=== PATIENT | female | born 1970 | race Caucasian/White ===

== ENCOUNTER → 2018-11-04 12:45 | Outpatient (CLI) | payer OTHER, SELFPAY ==
[2018-11-04 14:16] LABS: Absolute Lymphocyte Count 1.72 X10^3/ul (0.83-4.51); Absolute Neutrophil Count 2.5 X10^3/uL (2.0-7.7); Basophil# 0.03 X10^3/uL; Basophil% 0.6 % (0-1); Eosinophil# 0.16 X10^3/uL; Eosinophils% 3.3 % (0-5); Hematocrit 43.4 % (37-47); Hemoglobin 13.9 g/dl (12.0-15.0); Lymphocyte # 1.72 X10^3/ul (4.0); Lymphocyte % 35.3 % (19-41); Mean Corpuscular Hgb 29.1 pg (27.0-32.0); Mean Corpuscular Volume 90.8 fL (81-99); Mean Platelet Vol. 12.3 fl (6.2-12.0); Monocyte# 0.44 X10^3/uL; Neutrophil # 2.52 X10^3/uL (2.7-7.7); Neutrophil % 51.8 % (47-70); Platelet Count 150 K/mm3 (150-450); RBC Distribution Width CV 13.1 % (11.6-14.6); RBC Distribution Width SD 43.5 fl (35.1-43.9); Red Blood Count 4.78 M/mm3 (4.2-5.4); White Blood Count 4.9 K/mm3 (4.4-11.0)
[2018-11-04 14:20] LABS: POSITIVE COUNT NO; POSITIVE DIFFERENTIAL NO; POSITIVE MORPHOLOGY NO
[2018-11-04 14:46] LABS: PTHIN 53.4 pg/mL (18.4-80.1)
[2018-11-04 14:47] LABS: Vitamin B12 347 pg/mL (211-911); Vitamin D,25 Hydroxy 13.9 ng/mL (29.95-100.01)
[2018-11-04 14:49] LABS: AST(SGOT) 13 U/L (15-37); Alanine Aminotransfer ALT/SGPT 22 U/L (13-56); Albumin, Serum 3.5 g/dL (3.2-5.0); Alkaline Phosphatase 61 U/L (45-117); Anion Gap 8 (5-15); BUN 11 mg/dL (7-18); BUN/Creat Ratio 13.5 RATIO (10-20); Calcium,Total 8.6 mg/dL (8.5-10.1); Chloride 106 mmol/L (98-107); Cholesterol 163 mg/dL (200); Creatinine, Serum 0.81 mg/dL (0.55-1.02); EST Glomerular Filtration Rate 79 mL/min (>60); Est Glom Filt Rate - Afr Amer 96 mL/min (>60); Ferritin 167 ng/mL (8-252); Globulin 3.4 g/dL (2.2-4.2); Glucose 88 mg/dL (74-106); High Density Lipoprotein 59 mg/dL; Iron 74 ug/dL (50-170); Iron Binding Capacity,Total 262 ug/dL (250-450); Magnesium 1.8 mg/dL (1.6-2.6); PERCENT IRON SATURATION 28.2 % (15.0-55.0); Potassium 3.4 mmol/L (3.5-5.1); Protein, Total 6.9 g/dL (6.4-8.2); Sodium Level 143 mmol/L (136-145); Thyroid Stim Hormone (TSH) 1.12 uIU/mL (0.358-3.74); Triglycerides 140 mg/dL; Very Low Density Lipoprotein 28 mg/dL (5-40)
[2018-11-07 12:56] LABS: Vitamin B1, Thiamine 77.7 nmol/L (66.5-200.0); Zinc, Plasma or Serum 79 ug/dL (56-134)
== END ==
PROVIDERS: Family Provider Internal Medicine; PCP Internal Medicine
DX: G47.33 Obstructive sleep apnea (adult) (pediatric) (principal); I10 Essential (primary) hypertension; E78.5 Hyperlipidemia, unspecified; F32.9 Major depressive disorder, single episode, unspecified; Z98.84 Bariatric surgery status
CPT/HCPCS: 36415; 80053; 80061; 82306; 82607; 82728; 82746; 83540; 83550; 83735; 83970; 84425; 84443; 84630; 85025

== ENCOUNTER 2019-08-13 00:25 | Inpatient (IN) | payer OTHER, SELFPAY ==
[2019-08-13] VITALS (16 sets, daily range): BP systolic 124–143; BP diastolic 72–84; PULSE 61–109; RESP 14–20; TEMP 36.2–37.2; O2SAT 95–100; BMI 29.2
--- NOTE | 2019-08-13 00:42 | CT_ITS ---
We are attempting to reach an attending provider to discuss findings. An addendum with communication details will be sent when the communication is complete. HISTORY: RT SIDED ABDOMEN PAIN X SEVERAL WEEKS BUT WORSE NOWSURGERY:CHOLECYSTECTOMY,HYSTERECTOMY,GASTRIC SLEEVECTOMY EXAMINATION: CT Abdomen And Pelvis W/ Contrast TECHNIQUE: Helically acquired images were obtained of the abdomen and pelvis following IV contrast. A radiation dose optimization technique was used for this scan. IV Contrast dosage and agent: 100ML Gastrografin Tamp; 100mL Isovue-300 Oral Tamp; IV Gastrografin Tamp; 100mL Isovue-300 100ML Oral contrast: Yes COMPARISON: None FINDINGS: Lower thorax: Small hiatal hernia with gastric sleeve postsurgical change. No gastric dilatation. Cholecystectomy. No biliary dilatation. Normal liver, spleen, and pancreas. Both kidneys are normal in position. Bilateral renal opacification without evidence of hydronephrosis, pyelonephritis, or suspicious renal lesion. The lower pole of the right kidney shows a small cortical cyst together with small parapelvic cyst. The adrenal glands are not enlarged. Abdominal aorta is normal in caliber. No retroperitoneal lymph node enlargement. GI tract: Typical findings of cecal volvulus with focal narrowing and twist of the midascending colon with flip of a dilated cecum into the left midline abdomen. The cecum measures up to 10 cm in diameter and shows a large air-fluid level. No pneumoperitoneum. Small free fluid at the right paracolic gutter and within the pelvis. Pelvis: Normal urinary bladder. Small free fluid. Previous hysterectomy. CT/Abdomen/Pelvis WITH Contrast IMPRESSION: 1. Cecal volvulus. Details above. Dilated cecum which measures up to 10 cm in diameter and shows a large air-fluid level. 2. Small free fluid within the pelvis and right pericolic gutter. No pneumoperitoneum. 3. Gastric sleeve surgery with small hiatal hernia. 4. Previous cholecystectomy and hysterectomy. Individualized dose optimization techniques were used for this CT. at 0348 Reported and signed by: Otoniel Lee MD Electronically Signed: Otoniel Lee, at 3:47 EDT Tel , Service support ,
--- NOTE | 2019-08-13 00:43 | ED.VIS.GEN ---
History of Present Illness Chief Complaint: Abd Pain Informant: Patient Onset: Days - 2 Narrative: 2-day history of worsening mid abdominal pain down to the right side. Reports felt like a big gas bubble use Gas-X with no relief along with milk of magnesia. Normal bowel movement yesterday. History of gastric sleeve a year ago by Dr. Gupta in [place]. Small appetite since then. Positive flatus. History of cholecystectomy and hysterectomy. No fever chills or sweats. No urinary symptoms. Pain 8 out of 10. Reports pain goes to her back. No history of pancreatitis. Prior similar symptoms: No Past Medical History - Allergies and Home Meds Allergies/Adverse Reactions: Allergies No Known Allergies Allergy (Verified 08/13/19 00:28) Primary Care Physician: Marii Chowdhury DO [Primary Care Provider] - Smoking Status: Never smoker Review of Systems General: Denies: Chills, Fever, Sweats Eyes: Denies: Visual changes - bilaterally, Diplopia ENT: Denies: Rhinorrhea, Sore throat Cardiovascular: Denies: Chest pain, Palpitations Respiratory: Denies: Dyspnea, Cough, Dyspnea on exertion Gastrointestinal: Reports: Abdominal pain. Denies: Nausea, Vomiting, Diarrhea, Melena, Hematochezia Genitourinary: Denies: Dysuria, Hematuria, Frequency Musculoskeletal: Denies: Back pain, Extremity Pain Skin: Denies: Rash, Wounds Neurological: Denies: Headache, Weakness, Numbness Physical Exam Vital Signs/Narrative: Vital Signs Temp Pulse Resp BP Pulse Ox 08/13/19 00:26 98.0 F 99 16 142/72 H 98 08/13/19 00:25 98.0 F 102 H 18 142/72 H 99 Inital Vital Signs reviewed: Yes General: Well nourished, Well developed, No Acute Distress Head: Normocephalic, Atraumatic Eyes: Perrl, EOMI ENT: Moist mucous membranes, No rhinorrhea Neck: Supple, Nontender Cardiovascular: Regular rate, Regular rhythm, No murmurs Respiratory: No distress, CTA bilaterally, Chest nontender Abdomen: Soft, Nondistended, Hypoactive bowel sounds, - - Tender palpation mid abdomen and right lower quadrant without guarding or rebound. Back: Nontender, Normal Inspection Extremities: Nontender, No edema Skin: Normal color, No rash Neurological: Alert, Oriented x3, Cranial nerves II-XII grossly intact, Normal Strength, Normal Sensation Psychological: Normal affect, Normal Mood Diagnostic/Tx/Re-eval Clinical Impression(s) from Imaging Studies Abdomen/Pelvis CT 08/13/19 00:42 IMPRESSION: 1. Cecal volvulus. Details above. Dilated cecum which measures up to 10 cm in diameter and shows a large air-fluid level. 2. Small free fluid within the pelvis and right pericolic gutter. No pneumoperitoneum. 3. Gastric sleeve surgery with small hiatal hernia. 4. Previous cholecystectomy and hysterectomy. Individualized dose optimization techniques were used for this CT. at 0348 Reported and signed by: Otoniel Lee MD Electronically Signed: Otoniel Lee, at 3:47 EDT Tel , Service support , Abnormal Lab Results 08/13/19 08/13/19 00:30 00:30 WBC 8.3 RBC 4.80 Hgb 14.6 Hct 44.6 MCV 92.9 MCH 30.4 MCHC 32.7 RDW Std Deviation 40.9 RDW Coeff of Lester 11.9 Plt Count 136 L MPV 12.0 Immature Gran % (Auto) 0.200 Neut % (Auto) 71.3 H Lymph % (Auto) 20.0 [place] % (Auto) 6.9 Eos % (Auto) 1.0 Baso % (Auto) 0.6 Absolute Neuts (auto) 5.9 Absolute Lymphs (auto) 1.65 Nucleated RBC % 0 Sodium 140 Potassium 3.9 Chloride 106 Carbon Dioxide 28.0 Anion Gap 6 BUN 16 Creatinine 0.89 Estim Creat Clear Calc 70.01 Est GFR (MDRD) Af Amer 86 Est GFR (MDRD) Non-Af 71 BUN/Creatinine Ratio 17.9 Glucose 108 H Calcium 9.1 Total Bilirubin 0.60 AST 20 ALT 33 Alkaline Phosphatase 73 Total Protein 7.3 Albumin 3.6 Globulin 3.7 Albumin/Globulin Ratio 1.0 Lipase 134 - Medical Decision Making Patient nontoxic, hypoactive bowel sounds on exam, there is tenderness right side right lower quadrant without guarding or rebound. IV was placed, fluid started, abdominal labs normal with a normal white count. Contrast CT was obtained discussed with radiology concerns for cecal volvulus with cecum dilated 10 cm, there is no perforations. Reports this is classic findings on CT. Reevaluation after initial dose of morphine patient not more comfortable however complains of indigestion symptoms, she is given IV Protonix for this. I did add coags, lactic acid, type and screen. I discussed with on-call surgeon Dr. Jackson, who is on his way into see the patient in the ED. ED Disposition - Plan for ED Patient: Disposition: Acute Care [facility] Diagnosis: Cecal volvulus Referrals: Marii Chowdhury DO [Primary Care Provider] -
[2019-08-13 01:03] LABS: Absolute Lymphocyte Count 1.65 X10^3/uL (0.83-4.51); Absolute Neutrophil Count 5.9 X10^3/uL (2.0-7.7); Basophil# 0.05 X10^3/uL; Basophil% 0.6 % (0-1); Eosinophil# 0.08 X10^3/uL; Hematocrit 44.6 % (37-47); Hemoglobin 14.6 g/dL (12.0-15.0); Lymphocyte # 1.65 X10^3/ul (4.0); Mean Corp Hgb Conc 32.7 g/dL (32-36); Mean Corpuscular Hgb 30.4 pg (27.0-32.0); Mean Corpuscular Volume 92.9 fL (81-99); Monocyte# 0.57 X10^3/uL; Monocyte% 6.9 % (0-10); NRBC Flagged by Analyzer 0 % (0-5); Neutrophil # 5.88 X10^3/uL (2.7-7.7); Neutrophil % 71.3 % (47-70); Platelet Count 136 K/mm3 (150-450); RBC Distribution Width CV 11.9 % (11.6-14.6); RBC Distribution Width SD 40.9 fl (35.1-43.9); White Blood Count 8.3 K/mm3 (4.4-11.0)
[2019-08-13 01:07] LABS: AST(SGOT) 20 U/L (15-37); Alanine Aminotransfer ALT/SGPT 33 U/L (13-56); Albumin, Serum 3.6 g/dL (3.2-5.0); Alkaline Phosphatase 73 U/L (45-117); Anion Gap 6 (5-15); BUN 16 mg/dL (7-18); BUN/Creat Ratio 17.9 RATIO (10-20); Calcium,Total 9.1 mg/dL (8.5-10.1); Chloride 106 mmol/L (98-107); Creatinine, Serum 0.89 mg/dL (0.55-1.02); EST Glomerular Filtration Rate 71 mL/min (>60); Est Glom Filt Rate - Afr Amer 86 mL/min (>60); Estimated Creatinine Clearance 70.01 ml/min; Globulin 3.7 g/dL (2.2-4.2); Glucose 108 mg/dL (74-106); Lipase 134 U/L (73-393); Potassium 3.9 mmol/L (3.5-5.1); Protein, Total 7.3 g/dL (6.4-8.2); Sodium Level 140 mmol/L (136-145)
[2019-08-13] MEDS: Morphine 4 MG/ML Syringe IV ×3 (01:36→20:25)
[2019-08-13] MEDS: 0.9% Normal Saline 1,000 ML 125 ML IV (01:36)
[2019-08-13 04:07] LABS: International Normalized Ratio 1.1; Prothrombin Time (Protime)PT. 13.9 SECONDS (11.7-14.9)
[2019-08-13 04:08] LABS: Partial Thromboplast Time 28.7 Seconds (24.1-36.2)
[2019-08-13 04:25] LABS: Lactic Acid 0.7 mmol/L (0.4-2.0)
--- NOTE | 2019-08-13 04:30 | HP.PCM_ITS ---
Problem List (1) Cecal volvulus Status: Acute History of Present Illness Date of Admission: 08/13/19 The patient is a 49 year old F presents to the emergency room with abdominal pain. She reports that for 2 days she has had having increasing intensity of right sided abdominal pain. She denies any nausea or vomiting and had a bowel movement yesterday. She said the pain is now in her entire abdomen but worse in the right lower quadrant. Past Medical History Allergies No Known Allergies Allergy (Verified 08/13/19 00:28) Home Medications: Ambulatory Orders Medication Instructions Recorded Dextroamphetamine/Amphetamine 30 mg PO DAILY 08/13/19 [Adderall 10 mg Tablet] Omeprazole 40 mg PO DAILY 08/13/19 Surgical History: cholecystectomy, hysterectomy, - - Gastric sleeve Smoking Status: Never smoker - *Family History Maternal History Items: No pertinent history Review of Systems Constitutional: Denies: Anorexia, Fever HEENT: Denies: Difficulty Swallowing Cardiovascular: Denies: Chest Pain Respiratory: Denies: Cough, Shortness of Breath Gastrointestinal: Reports: Abdominal Pain. Denies: Diarrhea, Hematemesis, Hematochezia, Nausea, Vomiting Genitourinary: Denies: Incontinence Musculoskeletal: Denies: Joint Tenderness Skin: Denies: Dryness, Jaundice Neurological: Denies: Balance problems Endocrine: Denies: Change in Body Habitus Hematologic/ Lymphatic: Denies: Anemia VTE Information - Inpt Only VTE Present on Admission: No VTE Mechan Device Prophylaxis: SCD's Patient Problems: Active and Suspected Problems Cecal volvulus (Acute) - Physical Exam General: Alert, Oriented x3, Cooperative HEENT: Atraumatic Neck: No JVD Lungs: Normal air movement Cardiovascular: Regular rate, Regular Rhythm Abdomen: Soft, Tender - Tender in the right side of the abdomen Extremities: No clubbing Skin: No rashes Musculoskeletal: No Muscle Wasting Lymphatic: No Cervical, Supraclavicular, or Inguinal Adenopathy Neurological: Cranial nerves II-XII grossly intact Psych/Mental Status: Normal Affect, Appropriate Vital Signs Temp Pulse Resp BP Pulse Ox 97.8 F 82 18 137/81 H 95 08/13/19 04:24 08/13/19 04:24 08/13/19 04:24 08/13/19 04:24 08/13/19 04:24 Oxygen Delivery Method Room Air Weight: 180 lb 14.581 oz Body Mass Index (BMI) 29.2 Laboratory Tests Past 24 Hrs 08/13/19 08/13/19 08/13/19 00:30 00:30 00:30 WBC 8.3 RBC 4.80 Hgb 14.6 Hct 44.6 MCV 92.9 MCH 30.4 MCHC 32.7 RDW Std Deviation 40.9 RDW Coeff of Lester 11.9 Plt Count 136 L MPV 12.0 Immature Gran % (Auto) 0.200 Neut % (Auto) 71.3 H Lymph % (Auto) 20.0 [place] % (Auto) 6.9 Eos % (Auto) 1.0 Baso % (Auto) 0.6 Absolute Neuts (auto) 5.9 Absolute Lymphs (auto) 1.65 Nucleated RBC % 0 PT 13.9 INR 1.1 APTT 28.7 Sodium 140 Potassium 3.9 Chloride 106 Carbon Dioxide 28.0 Anion Gap 6 BUN 16 Creatinine 0.89 Estim Creat Clear Calc 70.01 Est GFR (MDRD) Af Amer 86 Est GFR (MDRD) Non-Af 71 BUN/Creatinine Ratio 17.9 Glucose 108 H Lactic Acid Calcium 9.1 Total Bilirubin 0.60 AST 20 ALT 33 Alkaline Phosphatase 73 Total Protein 7.3 Albumin 3.6 Globulin 3.7 Albumin/Globulin Ratio 1.0 Lipase 134 Blood Type Antibody Screen 08/13/19 08/13/19 03:50 03:50 WBC RBC Hgb Hct MCV MCH MCHC RDW Std Deviation RDW Coeff of Lester Plt Count MPV Immature Gran % (Auto) Neut % (Auto) Lymph % (Auto) [place] % (Auto) Eos % (Auto) Baso % (Auto) Absolute Neuts (auto) Absolute Lymphs (auto) Nucleated RBC % PT INR APTT Sodium Potassium Chloride Carbon Dioxide Anion Gap BUN Creatinine Estim Creat Clear Calc Est GFR (MDRD) Af Amer Est GFR (MDRD) Non-Af BUN/Creatinine Ratio Glucose Lactic Acid 0.7 Calcium Total Bilirubin AST ALT Alkaline Phosphatase Total Protein Albumin Globulin Albumin/Globulin Ratio Lipase Blood Type Pending Antibody Screen Pending Clinical Impression(s) from Imaging Studies Abdomen/Pelvis CT 08/13/19 00:42 IMPRESSION: 1. Cecal volvulus. Details above. Dilated cecum which measures up to 10 cm in diameter and shows a large air-fluid level. 2. Small free fluid within the pelvis and right pericolic gutter. No pneumoperitoneum. 3. Gastric sleeve surgery with small hiatal hernia. 4. Previous cholecystectomy and hysterectomy. Individualized dose optimization techniques were used for this CT. 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 Patient has 2-day history of right abdominal pain. This is intensifying. She has CT scan which shows cecal volvulus. There are no signs of obstruction but she does have fluid in the right paracolic gutter as well as a twist in the ascending colon and a very dilated cecum with an air-fluid level. 2. I discussed this with the patient and recommend laparotomy and right hemicolectomy. I discussed the surgery in detail and the risks including but not limited to bleeding, infection, injury to surrounding structures such as the ureter, bowel, bladder. I also discussed that there may be adhesions and this puts her bowel and stomach at risk as well. The patient understands the risks and is willing to proceed. Sushant Jackson MD Pager: [facility] [address] [place] [address], [address] [place] [address] Office:
--- NOTE | 2019-08-13 04:35 | COL_PTH ---
PATIENT: DEION SOLIS LOC: MS3 U#:[id number] AGE/SX: 49/F ROOM: MS322 RE08/13/[address]: Dr. Sushant Jackson MD : 1970 BED: 1 DIS: 08/17/2019 SPEC #: [id number] RECD: 08/15/19 08:09 STATUS: KATHERINE EDWARDS #: [id number] MARGA: 08/13/19 04:[address]: Sushant Jackson DEPT: SURGICAL PATHOLOGY RECD BY: Matthew Gaytan ENTERED: 08/15/19 10:01 SP TYPE: COLON OTHR DR: Dr. Marii Chowdhury DO Tissues: Colon, NOS Procedures: Surgery Specimen Level V HEADER OPERATION: Exploratory laparotomy, right hemicolectomy PRE-OP DIAGNOSIS: Cecal volvulus (acute) TISSUE SUBMITTED: Right colon MICROSCOPIC DIAGNOSIS Right colon, segmental colectomy: Vascular congestion and focal hemorrhage of submucosa and pericolonic soft tissue consistent with volvulus. Seven out of seven lymph nodes with no pathologic change. Margins of excision with no pathologic change. AM:shamar 08/17/19 MICROSCOPIC DESCRIPTION Slides are reviewed. GROSS DESCRIPTION Received in fixative is one container labeled with the patient's name and designated right colon. The specimen consists of a right hemicolectomy specimen consisting of cecum with ascending colon, segment of small intestine and appendix. The cecum with ascending colon measures 23 cm in length and 3 to 11 cm in diameter. Most of the cecum and adjacent ascending colon consists of most dilated portion of the colon. The segment of small intestine measures 6.5 cm in length and the appendix measures 6 cm in length and 0.5 cm in diameter. Both resection margins are stapled. Upon opening the colon, it contains fecal material. No mucosal lesion is identified. In the dilated portion of the colon, the mucosal fold is flat. The distal 5 cm portion of the colon appears unremarkable. Also present in the container is a donut-shaped piece of tissue measuring 4 x 1 x 0.5 cm. More dictation will follow after overnight fixation. / SJ:shamar 08/15/19 Sections of the appendix reveal pinpoint lumen without any mass lesion. No mucosal lesion is identified. Sections of the pericolonic adipose tissue reveal focal area of hemorrhage. No obviously enlarged lymph?nodes are identified. Mutual Fund Manager sections are submitted in nine cassettes as follows: 1??donut, 2 - resection margin, 3 - appendix, 4 & 5 - dilated portion of the cecum and ascending colon, 6??outside sales representative insurance sections of small and large intestine, 7 - ileocecal valve, 8 - hemorrhage area of pericolonic adipose tissue, 9 - mesentery and pericolonic tissue. / MARK:shamar 08/16/19 TC:5 CPT: 11093
[2019-08-13] MEDS: Piperacil/Tazobactam 3.375 GM/50 ML ML IV (04:47)
[2019-08-13] MEDS: Bupivacaine 0.25% 30 ML Vial (07:10)
[2019-08-13] MEDS: 0.9% Normal Saline 1,000 ML 100 ML IV ×3 (08:17→23:51)
--- NOTE | 2019-08-13 08:59 | OP.PCM_ITS ---
Problem List (1) Cecal volvulus Status: Acute Report of Operation Date of Procedure: 08/13/19 Pre-Operative Diagnosis: Cecal volvulus Post-Operative Diagnosis: Cecal volvulus Surgery/Procedure Performed:: Right hemicolectomy with primary anastomosis Description of Surgical Findings:: Cecal volvulus with ischemia of the right colon Specimen's removed: Right colon Description of Procedure: The patient was brought back to the operating room and general anesthesia was induced. Torres catheter was placed and there is clear urine. The abdomen was prepped and draped in usual sterile fashion. A midline incision was made superior to the umbilicus and deepened to the fascia using electrocautery. The fascia was elevated and incised and a finger sweep was performed. The dissection was carried inferiorly and superiorly on the fascia. The patient was noted to have intra-abdominal mesh inferiorly at the area of the umbilicus. Next a medium-sized wound protector was placed into the abdomen. The cecum was delivered through the incision. It appeared dilated with patchy spots of ischemia. It did appear twisted on its mesentery. The hepatic flexure was taken down using sharp dissection. The transverse colon was inspected in the right middle colic vessel was identified. A small window was made in the mesentery proximal to this vessel. 75 VADIM stapler was used to divide the proximal transverse colon. Next the terminal ileum was identified and a small window was made in the mesentery and a 75 VADIM stapler was used to divide the terminal ileum. LigaSure impact was used to take the mesentery down proximally distally until the right colic vessel was identified. The pedicle was dissected and the vein and artery to the right colon were clamped and suture-ligated separately. Next these were divided and the specimen was sent. The pedicle was inspected and there was good hemostasis. Next the corner of each staple line was taken with scissors and a VADIM stapler was placed into the terminal ileum and into the transverse colon. These were stable together in a tenia to antimesenteric side to side fashion. The stapler was removed and the staple line was inspected and there was no bleeding. Next a 60 TX stapler was placed across the anastomosis and fired. There were 2 areas of bleeding at the anastomosis which were reinforced with [id number] 3-0 silk sutures. A 3-0 silk suture was placed in the crux of the staple line. The anastomosis was returned into the abdomen and the abdomen was generously irrigated and suctioned. The anastomosis was reinspected and there was no bleeding or signs of leak. The mesenteric defect was closed with a running 3-0 Vicryl suture. Next the anterior fascia was closed with a running fashion from the top and bottom using 0 PDS suture meeting in the middle. Marcaine anesthetic was injected in the dermal space. The subcutaneous tissue was then irrigated and suctioned and the skin was closed with interrupted 4-0 Monocryl sutures. Steri- Strips and bandage were applied. Patient tolerated procedure well was brought to PACU in stable condition. - Admit VTE Documentation VTE Mechan Device Prophylaxis: SCD's
[2019-08-13] MEDS: Morphine 2 MG/ML Syringe IV ×3 (10:34→14:01)
[2019-08-13] MEDS: Ondansetron 4 MG/2 ML Vial IV (10:34)
[2019-08-13] MEDS: Pantoprazole Sodium 40 MG Tablet PO (10:35)
[2019-08-13] MEDS: 0.9% NaCl Peripheral Flush Adult/Peds IV ×5 (10:35→20:25)
[2019-08-14 02:24] VITALS: BP 133/70; PULSE 103; RESP 16; TEMP 37.6; O2SAT 93
[2019-08-14] MEDS: Calcium Carbonate 500 MG Tablet PO (02:37)
--- NOTE | 2019-08-14 07:39 | PCM.PN.SRG ---
Patient Problems: Active and Suspected Problems Cecal volvulus (Acute) Subjective: Patient reports that she had acid reflux which down. No nausea or vomiting. She is complaining of right-sided abdominal pain. No flatus. - Physical Exam General: Alert, Oriented x3 Neck: No JVD Lungs: Normal air movement Cardiovascular: Regular Rhythm, Tachycardic Abdomen: Soft, Non-Distended, Tender - Tender on the right side of the abdomen no guarding or rebound Extremities: No clubbing Neurological: Cranial nerves II-XII grossly intact Vital Signs Temp Pulse Resp BP Pulse Ox 99.6 F H 103 H 16 133/70 H 93 08/14/19 02:24 08/14/19 02:24 08/14/19 02:24 08/14/19 02:24 08/14/19 02:24 Oxygen Flow Rate (L/min) 2 Oxygen Delivery Method Room Air Weight: 180 lb 14.581 oz Body Mass Index (BMI) 29.2 Intake and Output for Last 24 Hours 08/12/19 08/13/19 08/14/19 23:59 23:59 23:59 Intake Total 3224.79 / 3224.79 625 / 625 Output Total 760 / 1510 1375 / 1375 Balance 2464.79 / 1714.79 -750 / -750 Laboratory Tests Past 24 Hrs 08/14/19 06:30 Sodium Pending Potassium Pending Chloride Pending Carbon Dioxide Pending Anion Gap Pending BUN Pending Creatinine Pending Est GFR (MDRD) Af Amer Pending Est GFR (MDRD) Non-Af Pending BUN/Creatinine Ratio Pending Glucose Pending Calcium Pending Medical Necessity - Tobacco Use Smoking Status: Never smoker Assessment/Plan All Active Problems Cecal volvulus (Acute) 49-year-old female status post right palma-colectomy for cecal volvulus 1. Patient developed mild tachycardia and low-grade fever. Labs are pending. She had good urine output and I will remove her Torres. Decrease IV fluid rate. If she is feeling better later today and the labs are within normal limits I will start a clear liquid diet. 2. Pain control, Lovenox, SCDs, PPI. Sushant Jackson MD Pager: [facility] [address] [place] [address] [facility], [address] [place] [phone] Office:
[2019-08-14 08:00] VITALS: BP 129/73; PULSE 96; RESP 16; TEMP 36.8; O2SAT 99
[2019-08-14] MEDS: Acetaminophen 325 MG Tablet 650 MG PO ×2 (08:00→18:08)
[2019-08-14 08:01] LABS: Anion Gap 7 (5-15); BUN 8 mg/dL (7-18); Chloride 107 mmol/L (98-107); Creatinine, Serum 0.73 mg/dL (0.55-1.02); EST Glomerular Filtration Rate 89 mL/min (>60); Est Glom Filt Rate - Afr Amer 108 mL/min (>60); Estimated Creatinine Clearance 85.35 ml/min; Glucose 98 mg/dL (74-106); Sodium Level 138 mmol/L (136-145)
[2019-08-14 08:35] LABS: Differential Indicated SCAN CRITERIA MET; Hematocrit 42.8 % (37-47); Hemoglobin 13.8 g/dL (12.0-15.0); Mean Corp Hgb Conc 32.2 g/dL (32-36); Mean Corpuscular Hgb 29.7 pg (27.0-32.0); Mean Corpuscular Volume 92.2 fL (81-99); Mean Platelet Vol. 12.1 fl (6.2-12.0); Neutrophil % 87.3 % (47-70); Platelet Count 138 K/mm3 (150-450); RBC Distribution Width CV 11.9 % (11.6-14.6); RBC Distribution Width SD 40.3 fl (35.1-43.9); Red Blood Count 4.64 M/mm3 (4.2-5.4); White Blood Count 10.9 K/mm3 (4.4-11.0)
[2019-08-14 08:36] LABS: Absolute Lymphocyte Count 0.44 X10^3/uL (0.83-4.51); Absolute Neutrophil Count 9.5 X10^3/uL (2.0-7.7); Basophil# 0.01 X10^3/uL; Basophil% 0.1 % (0-1); Eosinophil# 0.15 X10^3/uL; Eosinophils% 1.4 % (0-5); Lymphocyte # 0.44 X10^3/ul (4.0); Monocyte# 0.73 X10^3/uL; Monocyte% 6.7 % (0-10)
[2019-08-14 08:45] LABS: NRBC Flagged by Analyzer 0 % (0-5)
[2019-08-14] MEDS: Enoxaparin 40 MG/0.4 ML Syringe SC (09:36)
[2019-08-14] MEDS: Pantoprazole Sodium 40 MG Tablet PO (09:36)
[2019-08-14] MEDS: 0.9% Normal Saline 1,000 ML 60 ML IV (09:40)
[2019-08-14 14:00] VITALS: BP 143/93; PULSE 84; RESP 14; TEMP 36.7; O2SAT 100
[2019-08-14] MEDS: Morphine 2 MG/ML Syringe IV (14:21)
[2019-08-14 18:09] VITALS: TEMP 37.4
[2019-08-14 19:59] VITALS: BP 112/66; PULSE 99; RESP 16; TEMP 36.9; O2SAT 95
[2019-08-15] MEDS: Morphine 2 MG/ML Syringe IV (00:35)
[2019-08-15] MEDS: 0.9% Normal Saline 1,000 ML 60 ML IV (02:20)
[2019-08-15 02:21] VITALS: BP 131/75; PULSE 95; RESP 16; TEMP 36.9; O2SAT 97
[2019-08-15 06:57] LABS: Absolute Lymphocyte Count 0.72 X10^3/uL (0.83-4.51); Absolute Neutrophil Count 6.3 X10^3/uL (2.0-7.7); Basophil# 0.02 X10^3/uL; Basophil% 0.2 % (0-1); Eosinophil# 0.33 X10^3/uL; Eosinophils% 4.1 % (0-5); Hematocrit 39.4 % (37-47); Hemoglobin 12.7 g/dL (12.0-15.0); Lymphocyte # 0.72 X10^3/ul (4.0); Lymphocyte % 8.9 % (19-41); Mean Corp Hgb Conc 32.2 g/dL (32-36); Mean Corpuscular Hgb 29.5 pg (27.0-32.0); Mean Corpuscular Volume 91.6 fL (81-99); Mean Platelet Vol. 11.8 fl (6.2-12.0); Monocyte# 0.62 X10^3/uL; Monocyte% 7.7 % (0-10); NRBC Flagged by Analyzer 0 % (0-5); Neutrophil # 6.32 X10^3/uL (2.7-7.7); Neutrophil % 78.5 % (47-70); Platelet Count 142 K/mm3 (150-450); RBC Distribution Width CV 11.9 % (11.6-14.6); White Blood Count 8.1 K/mm3 (4.4-11.0)
[2019-08-15 07:14] LABS: Anion Gap 9 (5-15); BUN 7 mg/dL (7-18); BUN/Creat Ratio 11.3 RATIO (10-20); Calcium,Total 8.2 mg/dL (8.5-10.1); Chloride 107 mmol/L (98-107); Creatinine, Serum 0.62 mg/dL (0.55-1.02); EST Glomerular Filtration Rate 108 mL/min (>60); Est Glom Filt Rate - Afr Amer 131 mL/min (>60); Estimated Creatinine Clearance 100.49 ml/min; Glucose 79 mg/dL (74-106); Potassium 3.5 mmol/L (3.5-5.1); Sodium Level 141 mmol/L (136-145)
[2019-08-15 08:05] VITALS: BP 133/72; PULSE 91; RESP 16; TEMP 37.1; O2SAT 99
[2019-08-15 08:08] VITALS: PULSE 91; RESP 16; O2SAT 99
[2019-08-15] MEDS: Pantoprazole Sodium 40 MG Tablet PO (08:52)
[2019-08-15] MEDS: Enoxaparin 40 MG/0.4 ML Syringe SC (08:52)
[2019-08-15] MEDS: HYDROcodone Bitartrate/Apap 5/325 Tablet PO ×3 (08:52→22:19)
[2019-08-15 14:45] VITALS: BP 116/63; PULSE 84; RESP 16; TEMP 36.9; O2SAT 100
[2019-08-15 20:40] VITALS: BP 124/74; PULSE 85; RESP 16; TEMP 36.9; O2SAT 97
[2019-08-16 02:45] VITALS: BP 97/52; PULSE 78; RESP 16; TEMP 36.7; O2SAT 97
[2019-08-16] MEDS: HYDROcodone Bitartrate/Apap 5/325 Tablet PO ×2 (04:24→23:03)
[2019-08-16] MEDS: Pantoprazole Sodium 40 MG Tablet PO (07:34)
--- NOTE | 2019-08-16 07:53 | PN.SURG_ITS ---
Patient Problems: Active and Suspected Problems Cecal volvulus (Acute) Subjective: Patient reports he is tolerating full liquid diet. She is not passing any flatus. No nausea or vomiting. - Physical Exam General: Alert, Oriented x3 HEENT: Atraumatic Neck: Supple Lungs: Normal air movement Cardiovascular: Regular rate, Regular Rhythm Abdomen: Soft, Non-Distended, Tender - Mild right lower quadrant tenderness Vital Signs Temp Pulse Resp BP Pulse Ox 98.0 F 78 16 97/52 L 97 08/16/19 02:45 08/16/19 02:45 08/16/19 02:45 08/16/19 02:45 08/16/19 02:45 Oxygen Flow Rate (L/min) 2 Oxygen Delivery Method Room Air Weight: 180 lb 14.581 oz Body Mass Index (BMI) 29.2 Intake and Output for Last 24 Hours 08/14/19 08/15/19 08/16/19 23:59 23:59 23:59 Intake Total 1501.67 / 1501.67 2909 / 3359 750 / 750 Output Total 2625 / 2625 750 / 750 Balance -1123.33 / -1123.33 2159 / 2609 750 / 750 Medical Necessity - Tobacco Use Smoking Status: Never smoker Assessment/Plan All Active Problems Cecal volvulus (Acute) 49-year-old female status post right palma-colectomy for cecal volvulus 1. Patient has hypoactive bowel sounds but is tolerating full liquids. She is not passing any flatus yet. Recommended continuing to ambulate. Once she is having bowel function she will be discharged home. Sushant Jackson MD Pager: [facility] [address] [place] [address], [address] [place] [address] Office:
[2019-08-16 10:24] VITALS: BP 126/74; PULSE 86; RESP 18; TEMP 36.4; O2SAT 99
[2019-08-16] MEDS: Enoxaparin 40 MG/0.4 ML Syringe SC (10:30)
[2019-08-16 13:31] VITALS: BP 117/66; PULSE 90; RESP 18; TEMP 36.7; O2SAT 97
[2019-08-16 22:56] VITALS: BP 119/65; PULSE 88; RESP 16; TEMP 36.8; O2SAT 96
[2019-08-17 04:10] VITALS: BP 100/50; PULSE 80; RESP 16; TEMP 36.6; O2SAT 96
[2019-08-17] MEDS: HYDROcodone Bitartrate/Apap 5/325 Tablet PO (04:13)
[2019-08-17] MEDS: Enoxaparin 40 MG/0.4 ML Syringe SC (09:41)
[2019-08-17] MEDS: Pantoprazole Sodium 40 MG Tablet PO (09:41)
[2019-08-17 09:50] VITALS: BP 122/63; PULSE 81; RESP 16; TEMP 36.9; O2SAT 99
--- NOTE | 2019-08-17 10:44 | DCINST_ITS ---
Discharge Diet: No Restrictions Discharge Activity: Return to Normal Activity, May Shower Additional Activity Instructions:: Be aware that pain medications may cause nausea. You should typically eat light foods as you take your pain medications. Pain medications may also cause constipation, if you have difficulty with this please discuss with your doctor. Call your doctor if your incision/area has: Continuous Slow Oozing, Sudden Increased Bleeding, Increased Pain/ Swelling, Increased Redness, Foul Smelling Discharge, Swelling at the incision site Call your doctor if you observe: Fever of 101 or Higher Allergies/Adverse Reactions: Allergies No Known Allergies Allergy (Verified 08/13/19 00:28) Medications to take at Discharge Dextroamphetamine/Amphetamine [Adderall 10 mg Tablet] 30 mg PO DAILY 08/13/19 Omeprazole 40 mg PO DAILY 08/13/19 Hydrocodone Bitart/Apap 5-325 [[place] 5/325] 1 - 2 tab PO Q4H PRN PRN 5 Days #20 tab 08/17/19 The following prescriptions were given: Hydrocodone Bitart/Apap 5-325 [[place] 5/325] 1 - 2 tab PO Q4H PRN PRN 5 Days #20 tab PRN Reason: Pain Score 6-10/10 Transmission Status: Sent to [facility] Primary Care Physician: Marii Chowdhury DO [Primary Care Provider] - Test Results: Test results from this visit will be discussed in further detail at your follow- up appointment, if applicable. Please Follow Up With: Sushant Jackson MD When: Please call to schedule 2 week follow up appointment. [phone]
--- NOTE | 2019-08-17 10:46 | PCM.DC.SUM ---
Discharge Date and Diagnosis Date of Admission: 08/13/19 Date of Discharge: 08/17/19 - Primary Discharge Diagnosis Active and Suspected Problems Cecal volvulus (Acute) Hospital Course and Treatment Imaging Results: Clinical Impression(s) from Imaging Studies Abdomen/Pelvis CT 08/13/19 00:42 IMPRESSION: 1. Cecal volvulus. Details above. Dilated cecum which measures up to 10 cm in diameter and shows a large air-fluid level. 2. Small free fluid within the pelvis and right pericolic gutter. No pneumoperitoneum. 3. Gastric sleeve surgery with small hiatal hernia. 4. Previous cholecystectomy and hysterectomy. Individualized dose optimization techniques were used for this CT. at 0738 Reported and signed by: Otoniel Lee MD Electronically Signed: Otoniel Lee, at 3:47 EDT Tel , Service support , ADDENDUM: 08/13/19 0508 IMPRESSION: 1. Cecal volvulus. Details above. Dilated cecum which measures up to 10 cm in diameter and shows a large air-fluid level. 2. Small free fluid within the pelvis and right pericolic gutter. No pneumoperitoneum. 3. Gastric sleeve surgery with small hiatal hernia. 4. Previous cholecystectomy and hysterectomy. Individualized dose optimization techniques were used for this CT. at 8558 Reported and signed by: Otoniel Lee MD N.B. : The above information has been verbally conveyed by Otoniel Lee to Dr. Ebony MD, on 08/13/2019 05:01:05 (ET). Electronically Signed: Ootniel Lee, at 3:47 EDT Tel , Service support , Operations: colectomy Procedures: None Summary of Care Provided: The patient is a 49 year old F presented to the hospital with abdominal pain. CT revealed cecal volvulus. Patient was immediately taken for exploratory laparotomy with right palma-colectomy. Patient tolerated the procedure well was brought up to the floor postoperatively. The following day she was started on clear liquid diet. She did have a small postoperative ileus but when she was passing flatus she was advanced to regular diet and discharged home in stable condition. - Physical Exam Vital Signs Temp Pulse Resp BP Pulse Ox 98.5 F 81 16 122/63 H 99 08/17/19 09:50 08/17/19 09:50 08/17/19 09:50 08/17/19 09:50 08/17/19 09:50 Oxygen Flow Rate (L/min) 2 Oxygen Delivery Method Room Air Weight: 180 lb 14.581 oz Body Mass Index (BMI) 29.2 Intake and Output for Last 24 Hours 08/15/19 08/16/19 08/17/19 23:59 23:59 23:59 Intake Total 2909 / 3359 1470 / 1870 450 / 450 Output Total 750 / 750 Balance 2159 / 2609 1469 / 1869 450 / 450 Discharge Diet: No Restrictions Discharge Activity: Return to Normal Activity, May Shower Additional Activity Instructions:: Be aware that pain medications may cause nausea. You should typically eat light foods as you take your pain medications. Pain medications may also cause constipation, if you have difficulty with this please discuss with your doctor. Call your doctor if your incision/area has: Continuous Slow Oozing, Sudden Increased Bleeding, Increased Pain/ Swelling, Increased Redness, Foul Smelling Discharge, Swelling at the incision site Call your doctor if you observe: Fever of 101 or Higher Home Medications: Medications to take at Discharge Dextroamphetamine/Amphetamine [Adderall 10 mg Tablet] 30 mg PO DAILY 08/13/19 Omeprazole 40 mg PO DAILY 08/13/19 Docusate Sodium [Colace] 100 mg PO BID 5 Days #10 cap 08/17/19 Hydrocodone Bitart/Apap 5-325 [Buckingham 5/325] 1 - 2 tab PO Q4H PRN PRN 5 Days #20 tab 08/17/19 Following Prescrptions Were Given to Patient: Docusate Sodium [Colace] 100 mg PO BID 5 Days #10 cap Transmission Status: Received by [facility] Hydrocodone Bitart/Apap 5-325 [[place]ingham 5/325] 1 - 2 tab PO Q4H PRN PRN 5 Days #20 tab PRN Reason: Pain Score 6-10/10 Transmission Status: Received by [facility] Primary Care Physician: Marii Chowdhury DO [Primary Care Provider] - Please Follow Up With: Sushant Jackson MD When: Please call to schedule 2 week follow up appointment. [phone] Medical Necessity - Tobacco Use Smoking Status: Never smoker Meaningful Use Info Meaningful Use Diagnoses (Choose all that apply): None applicable
== END 2019-08-17 12:05 | disposition home or self-care (01) | DRG 330 ==
LOC: ED 04:00 → SDC 04:21 → MS3 09:12 → SDC 08-15 06:43 → MS3 08-15 06:44
PROVIDERS: Admitting Provider Surgery; Emergency Provider Emergency Medicine; Family Provider Internal Medicine; PCP Internal Medicine; Referring Provider Surgery; Visit Provider Surgery
PROC: 0DTF0ZZ Resection of Right Large Intestine, Open Approach (ICD-10-PCS; principal; 2019-08-13 04:35)
DX: K56.2 Volvulus (principal); K55.9 Vascular disorder of intestine, unspecified; K91.89 Other postprocedural complications and disorders of digestive system; Z98.84 Bariatric surgery status; K44.9 Diaphragmatic hernia without obstruction or gangrene; Z79.899 Other long term (current) drug therapy; F90.9 Attention-deficit hyperactivity disorder, unspecified type; R00.0 Tachycardia, unspecified; K56.7 Ileus, unspecified
CPT/HCPCS: 36415; 74177; 80048; 80053; 83605; 83690; 85025; 85610; 85730; 86850; 86900; 86901; 88307; 93005; 99284; J7030; Q9967; A4216; J2405

== ENCOUNTER → 2021-07-17 08:03 | Outpatient (CLI) | payer OTHER, SELFPAY ==
--- NOTE | 2021-07-17 08:06 | VDLE_ITS ---
Reason For Study: pain in calf RIGHT GSV is normal. CFV is compressible, spontaneous, phasic, competent and demonstrates normal augmentation. FV is compressible, spontaneous, phasic, competent and demonstrates normal augmentation. POP V is compressible, spontaneous, phasic, competent and demonstrates normal augmentation. T/P Trunk is compressible. PTV is compressible. RT PerV is compressible. Varicosities in the right calf are dilated and noncompressible. Procedure This is a venous duplex using B-mode, color flow and spectral Doppler. Exam performed in department. The exam was diagnostic. A preliminary report was called and/or faxed to DR. Gutierres @ [phone] & [phone] @ 8:30am. VL/Venous Duplex US, Unilateral Interpretation Summary There is no evidence of right lower extremity deep vein thrombosis. Superficial thrombophlebitis varicosities right calf Ordering Physician: Zahra Gutierres Referring Physician: Zahra Gutierres Performed By: Oliva Choe, RDCS, RVT
== END ==
PROVIDERS: PCP Internal Medicine; Referring Provider Internal Medicine; Visit Provider Internal Medicine
DX: M79.661 Pain in right lower leg (principal)
CPT/HCPCS: 93971

== ENCOUNTER → 2021-10-30 12:48 | Outpatient (CLI) | payer OTHER, SELFPAY ==
[2021-10-30 15:08] LABS: Absolute Lymphocyte Count 1.72 X10^3/uL (0.83-4.51); Absolute Neutrophil Count 5.2 X10^3/uL (2.0-7.7); Basophil# 0.04 X10^3/uL; Basophil% 0.5 % (0-1); Eosinophil# 0.03 X10^3/uL; Eosinophils% 0.4 % (0-5); Hematocrit 39.8 % (37-47); Hemoglobin 13.1 g/dL (12.0-15.0); Lymphocyte # 1.72 X10^3/ul (0.83-4.51); Lymphocyte % 21.9 % (19-41); Mean Corp Hgb Conc 32.9 g/dL (32-36); Mean Corpuscular Hgb 29.4 pg (27.0-32.0); Mean Corpuscular Volume 89.4 fL (81-99); Mean Platelet Vol. 11.5 fl (6.2-12.0); Monocyte# 0.72 X10^3/uL; Monocyte% 9.2 % (0-10); NRBC Flagged by Analyzer 0 % (0-5); Neutrophil # 5.18 X10^3/uL (2.7-7.7); Platelet Count 260 K/mm3 (150-450); RBC Distribution Width CV 11.6 % (11.6-14.6); RBC Distribution Width SD 37.1 fl (35.1-43.9); Red Blood Count 4.45 M/mm3 (4.2-5.4); White Blood Count 7.9 K/mm3 (4.4-11.0)
[2021-10-30 15:27] LABS: ALB/GLOB Ratio 0.7 RATIO (0.9-2.4); AST(SGOT) 22 U/L (15-37); Alanine Aminotransfer ALT/SGPT 34 U/L (13-56); Albumin, Serum 2.9 g/dL (3.2-5.0); Alkaline Phosphatase 83 U/L (45-117); Anion Gap 7 (5-15); BUN 22 mg/dL (7-18); Calcium,Total 9.1 mg/dL (8.5-10.1); Chloride 104 mmol/L (98-107); Cholesterol 141 mg/dL (200); Creatinine, Serum 0.96 mg/dL (0.55-1.02); EST Glomerular Filtration Rate 65 mL/min (>60); Est Glom Filt Rate - Afr Amer 79 mL/min (>60); Globulin 4.2 g/dL (2.2-4.2); Glucose 91 mg/dL (74-106); High Density Lipoprotein 72 mg/dL; Potassium 2.9 mmol/L (3.5-5.1); Protein, Total 7.1 g/dL (6.4-8.2); Sodium Level 139 mmol/L (136-145); Triglycerides 103 mg/dL; Very Low Density Lipoprotein 21 mg/dL (5-40)
== END ==
PROVIDERS: PCP Internal Medicine; Referring Provider Internal Medicine; Visit Provider Internal Medicine
DX: E78.00 Pure hypercholesterolemia, unspecified (principal); E88.81 Metabolic syndrome and other insulin resistance
CPT/HCPCS: 36415; 80053; 80061; 85025

== ENCOUNTER 2023-05-23 04:51 | Emergency (ER) | payer BC, SELFPAY ==
[2023-05-23 04:52] VITALS: BP 124/85; PULSE 77; RESP 20; TEMP 35.9; O2SAT 98; BMI 27.3
--- NOTE | 2023-05-23 05:29 | CT_ITS ---
INDICATION: left flank pain EXAMINATION: CT ABDOMEN AND PELVIS WITHOUT CONTRAST - CT Abdomen And Pelvis W/O Contrast Injection TECHNIQUE: Helically acquired images were obtained of the abdomen and pelvis without oral or IV contrast. A radiation dose optimization technique was used for this scan. IV Contrast dosage and agent: None. Oral contrast: None. RADIATION DOSAGE (If Supplied By Facility): CTDIvol = ( 7.21 ) mGy, DLP = ( 345.79 ) mGycm COMPARISON: Prior study dated: August 13, 2019 FINDINGS: LOWER CHEST: Lung bases are clear. No cardiomegaly or pericardial effusion. The lack of intravenous contrast limits evaluation of solid visceral organs. LIVER: Homogeneous. No focal mass. GALLBLADDER AND BILIARY TREE: There is nonvisualization of the gallbladder. No intra- or extrahepatic biliary ductal dilation. PANCREAS: No focal cystic or solid mass. SPLEEN: Normal size without focal cystic or solid mass. ADRENAL GLANDS: No nodules. KIDNEYS AND URETERS: Normal renal size and position. There is left-sided hydroureteronephrosis. PERITONEUM: No ascites or free air. No other fluid collection. BOWEL: No evidence of acute appendicitis. There are postsurgical changes of the stomach. No stomach or bowel distension. No focal inflammatory change. LYMPH NODES: No enlarged mesenteric or retroperitoneal lymph nodes. VESSELS: Aorta is non-dilated. URINARY BLADDER: There is a 7 mm calculus within the posterior urinary bladder left of midline. There is a grossly stable right renal cyst. REPRODUCTIVE ORGANS: No pelvic masses. ABDOMINAL WALL: No discrete abdominal or pelvic wall hernia. BONES: There are mild degenerative changes of the visualized thoracic and lumbar spine. CT/Abdomen/Pelvis without Cont IMPRESSION: Left-sided hydroureteronephrosis likely secondary to recent passage of 7 mm calculus within the urinary bladder left of midline. Electronically Signed: Meera Frankel MD at 8:30 EDT ,
[2023-05-23 05:45] LABS: Absolute Lymphocyte Count 2.79 X10^3/uL (0.83-4.51); Absolute Neutrophil Count 2.3 X10^3/uL (2.0-7.7); Basophil# 0.06 X10^3/uL; Eosinophil# 0.13 X10^3/uL; Eosinophils% 2.2 % (0-5); Hematocrit 40.3 % (37-47); Hemoglobin 12.9 g/dL (12.0-15.0); Lymphocyte # 2.79 X10^3/ul (0.83-4.51); Mean Corpuscular Hgb 29.6 pg (27.0-32.0); Mean Corpuscular Volume 92.4 fL (81-99); Mean Platelet Vol. 10.3 fl (6.2-12.0); Monocyte# 0.62 X10^3/uL; Monocyte% 10.5 % (0-10); NRBC Flagged by Analyzer 0 % (0-5); Neutrophil # 2.32 X10^3/uL (2.7-7.7); Neutrophil % 39.1 % (47-70); Platelet Count 146 K/mm3 (150-450); RBC Distribution Width CV 12.1 % (11.6-14.6); RBC Distribution Width SD 41.2 fl (35.1-43.9); Red Blood Count 4.36 M/mm3 (4.2-5.4); White Blood Count 5.9 K/mm3 (4.4-11.0)
[2023-05-23] MEDS: 0.9% Normal Saline 1,000 ML 999 ML IV (05:45)
[2023-05-23] MEDS: Ondansetron 4 MG/2 ML Vial IV (05:46)
[2023-05-23] MEDS: Morphine 4 MG/ML Syringe IV (05:47)
[2023-05-23 05:58] LABS: Anion Gap 5 (5-15); BUN 19 mg/dL (7-18); BUN/Creat Ratio 18.6 RATIO (10-20); Calcium,Total 8.3 mg/dL (8.5-10.1); Chloride 109 mmol/L (98-107); Creatinine, Serum 1.02 mg/dL (0.55-1.02); EST Glomerular Filtration Rate 60 mL/min (>60); Est Glom Filt Rate - Afr Amer 72 mL/min (>60); Estimated Creatinine Clearance 59.03 ml/min; Glucose 105 mg/dL (74-106); Potassium 3.6 mmol/L (3.5-5.1); Sodium Level 142 mmol/L (136-145)
[2023-05-23] MEDS: Ketorolac 30 MG/ML Syringe IV (06:20)
--- NOTE | 2023-05-23 07:59 | EDS_ITS ---
HPI History of Present Illness Chief Complaint: Flank Pain Informant: patient and family Narrative Narrative: Patient is a 52-year-old female with past medical history of an umbilicus hernia and cecal volvulus requiring surgical fixation a few years ago. She states that she went to bed feeling normal and then woke up 1 to 2 hours prior to arrival to use the restroom. She states she had no difficulty doing so and denied any dysuria associated with this. She states that she laid back down in bed and then developed sharp pain in the left-sided abdomen radiating towards her groin. She states that it does not improve or worsen with any change in position. She denies any recent trauma or excessive activity. She states she tried [id number] medication without any symptom improvement and therefore comes in for evaluation [facility] Medical History History of umbilical hernia Home Medications dextroamphetamine-amphetamine 10 mg tablet 30 mg PO DAILY 08/13/19 [History Last Taken Unknown] omeprazole 40 mg capsule,delayed release 40 mg PO DAILY 08/13/19 [History Last Taken Unknown] ketorolac 10 mg tablet 10 mg PO Q6H PRN pain 5 days #20 tabs 05/23/23 [Rx Last Taken Unknown] oxycodone-acetaminophen 5 mg-325 mg tablet (Endocet) 1 tab PO Q6H PRN pain 3 days #12 tabs 05/23/23 [Rx Last Taken Unknown] tamsulosin 0.4 mg capsule (Flomax) 0.4 mg PO DAILY #14 caps 05/23/23 [Rx Last Taken Unknown] Allergy/AdvReac Type Severity Reaction Status Date / Time No Known Allergies Allergy Verified 05/23/23 04:51 Surgical History History of partial colectomy S/P carpal tunnel release s/p gastric sleeve Status post laparoscopic cholecystectomy TMJ syndrome Social History (Updated 08/26/19 @ 13:[address] Sushant Jackson MD) Smoking Status: Never smoker ROS ROS ED Constitutional Constitutional ED: Denies chills or fever(s) ENT ENT ED: Denies sore throat Cardiovascular Cardiovascular: Denies chest pain Respiratory/Chest Respiratory/Chest: Denies cough or dyspnea Gastrointestinal Gastrointestinal: Reports abdominal pain and nausea; Denies diarrhea or vomiting Genitourinary Genitourinary ED: Denies dysuria or hematuria Musculoskeletal Musculoskeletal: Reports back pain; Denies myalgias Integumentary Denies rash Neurologic Neurologic: Denies headache(s) Hematologic/Lymphatic Hematologic/Lymphatic: Denies easy bleeding or easy bruising EXAM Physical Exam Const Vital Signs: 05/23/23 04:52 Temperature 96.6 F L Temperature Source Temporal Pulse Rate 77 Respiratory Rate 20 H Blood Pressure 124/85 H Blood Pressure Mean 98 Pulse Ox 98 Oxygen Delivery Method Room Air Positive well nourished and well developed General Appearance ED: well developed HEENT HEENT Narrative: Normocephalic atraumatic Eyes PERRL and EOMs intact bilaterally Neck supple Resp normal respiratory effort and clear to auscultation bilaterally Cardio regular rate and regular rhythm Rate: other Other Details: Radial pulses are plus 2 out of 4 bilaterally are equal and symmetric GI non-distended GI Narrative: Abdomen is soft and nondistended with normal active bowel sounds. There is mild pain with palpation in the left mid to lower abdomen without voluntary guarding or rigidity. No pulsatile mass or fluid wave noted Auscultation: normoactive bowel sounds Palpation: soft Back/Spine Back/Spine Narrative: Mild left CVA pain present Extremity normal to inspection Neuro oriented x3, CN's II-XII intact bilaterally and no sensory deficits noted Sensorium / Orientation: alert Motor Exam: strength 5/5 throughout Psych mental status grossly normal Skin no rashes or lesions noted Skin Narrative: No overlying abrasions or ecchymosis to suggest trauma and no erythema or warmth to suggest infection General Skin Exam: Negative for jaundice MDM MDM MDM Narrative Medical decision making narrative: Patient presented to the ER afebrile with stable vitals. She reported sudden onset of left-sided abdominal pain radiating towards her groin but was not distended or tympanic and there is no overlying soft tissue changes to suggest infection or trauma. Concern is for kidney stone versus diverticulitis versus bowel obstruction versus shingles or cellulitis or abscess or potential pyelonephritis. Basic blood work was obtained which revealed no signs of acute kidney injury or urosepsis. CT scan was obtained without contrast secondary to most likely kidney stone as a cause of her symptoms and as interpreted by the emergency medicine physician revealed a small stone within the distal UVJ. At this time after treatment with Toradol pain has improved to evaluate for 3 or 4. With no signs of acute kidney injury or urosepsis and improvement of pain I do not feel patient warrants admission or emergent urology follow-up. She will be given prescription medications for pain control and can follow-up with urology on an outpatient basis. History & Record Review Discussion w/independent historian: Patient and Family Lab Data Attestation: I reviewed the patient's lab results. Labs: Laboratory Results - last 24 hr 05/23/23 05:38 WBC 5.9 RBC 4.36 Hgb 12.9 Hct 40.3 MCV 92.4 MCH 29.6 MCHC 32.0 RDW Std Deviation 41.2 RDW Coeff of Lester 12.1 Plt Count 146 L MPV 10.3 Immature Gran % (Auto) 0.200 Neut % (Auto) 39.1 L Lymph % (Auto) 47.0 H Gilchrist % (Auto) 10.5 H Eos % (Auto) 2.2 Baso % (Auto) 1.0 Absolute Neuts (auto) 2.3 Absolute Lymphs (auto) 2.79 Nucleated RBC % 0 Sodium 142 Potassium 3.6 Chloride 109 H Carbon Dioxide 28.0 Anion Gap 5 BUN 19 H Creatinine 1.02 Estim Creat Clear Calc 59.03 Est GFR (MDRD) Af Amer 72 Est GFR (MDRD) Non-Af 60 BUN/Creatinine Ratio 18.6 Glucose 105 Calcium 8.3 L Discharge Plan Triage Chief Complaint: Flank Pain ED Provider: Nato Morris Dx/Rx/DC Orders Clinical Impression: Renal colic, Kidney stone Instructions: ED Kidney Stone w/ Colic Prescriptions: New oxycodone-acetaminophen [Endocet] 5-325 mg tablet 1 tab PO Q6H PRN (Reason: pain) 3 Days Qty: 12 0RF ketorolac 10 mg tablet 10 mg PO Q6H PRN (Reason: pain) 5 Days Qty: 20 0RF tamsulosin [Flomax] 0.4 mg capsule 0.4 mg PO DAILY Qty: 14 0RF No Action dextroamphetamine-amphetamine 10 mg tablet 30 mg PO DAILY omeprazole 40 MG capsule,delayed release(DR/EC) 40 mg PO DAILY Primary Care Provider: Marii Chowdhury Referrals: Ani Prado MD [Med Staff - Active Staff] - Marii Chowdhury DO [Primary Care Provider] - Activity Restrictions/Additional Instructions: Please return to the ER should you develop a fever over 100.4 or your pain is not controlled with prescribed medications Disposition Disposition: Home, Self Care
[2023-05-23 08:18] LABS: Mucous, Urine 0 SEEN /hpf (<or=2+)
[2023-05-23 08:26] LABS: Color, Urine Yellow (Yellow); Glucose, Dipstick Normal (Normal); Ketone-Dipstick Negative (Negative); Leukocyte Esterase-Dipstick 500 /ul (Negative); Nitrite-Dipstick Negative (Negative); Occult Blood-Urine 10 /ul (Negative); Protein-Dipstick 30 mg/dl (Negative); Urine Bilirubin Dipstick Negative (Negative); Urine Clarity Sl. Cloudy (Clear); Urine Urobilinogen Normal (Normal); Urine pH 6.5 (5.0 - 8.0)
[2023-05-23 09:41] LABS: Bacteria 3+ /hpf (None Seen); Red Blood Cells-Urine 0-5 SEEN /hpf (0-5); Squamous Epithelial Cells - UA 10-25 SEEN /hpf (5-10); White Blood Cells 25-50 SEEN /hpf (0-5)
[2023-05-23 10:16] VITALS: PULSE 76; RESP 18; O2SAT 100
== END 2023-05-23 10:17 | disposition home or self-care (01) ==
PROVIDERS: Emergency Provider Emergency Medicine; PCP Internal Medicine; Visit Provider Emergency Medicine
DX: N20.0 Calculus of kidney (principal)
CPT/HCPCS: 74176; 80048; 81001; 85025; 87077; 87086; 87088; 96374; 96375; 99283; J7030; A4216; J2405

== ENCOUNTER 2023-11-25 08:13 | Outpatient (CLI) | payer BC, SELFPAY ==
[2023-11-25 11:05] LABS: Vitamin D,25 Hydroxy 37.3 ng/mL
[2023-11-25 11:27] LABS: ALB/GLOB Ratio 1.2 RATIO (0.9-2.4); AST(SGOT) 25 U/L (15-37); Alanine Aminotransfer ALT/SGPT 30 U/L (13-56); Albumin, Serum 3.7 g/dL (3.2-5.0); Alkaline Phosphatase 54 U/L (45-117); Anion Gap 4 (5-15); BUN 15 mg/dL (7-18); BUN/Creat Ratio 17.9 RATIO (10-20); Calcium,Total 8.9 mg/dL (8.5-10.1); Chloride 110 mmol/L (98-107); Cholesterol 198 mg/dL (200); Creatinine, Serum 0.84 mg/dL (0.55-1.02); EST Glomerular Filtration Rate 75 mL/min (>60); Est Glom Filt Rate - Afr Amer 91 mL/min (>60); Ferritin 50 ng/mL (8-252); Globulin 3.2 g/dL (2.2-4.2); Glucose 92 mg/dL (74-106); High Density Lipoprotein 105 mg/dL; Iron 107 ug/dL (50-170); Magnesium 2.3 mg/dL (1.6-2.6); Phosphorus 3.2 mg/dL (2.5-4.9); Potassium 3.7 mmol/L (3.5-5.1); Protein, Total 6.9 g/dL (6.4-8.2); Sodium Level 142 mmol/L (136-145); Thyroid Stim Hormone (TSH) 3.46 uIU/mL (0.358-3.74); Triglycerides 62 mg/dL; Very Low Density Lipoprotein 12 mg/dL (5-40)
[2023-11-25 11:34] LABS: Homocysteine 11.3 umol/L (3.2-10.7)
[2023-11-25 11:39] LABS: Absolute Lymphocyte Count 0.99 X10^3/uL (0.83-4.51); Absolute Neutrophil Count 1.4 X10^3/uL (2.0-7.7); Basophil# 0.04 X10^3/uL; Basophil% 1.5 % (0-1); Eosinophil# 0.05 X10^3/uL; Eosinophils% 1.9 % (0-5); Hematocrit 43.3 % (37-47); Hemoglobin 13.5 g/dL (12.0-15.0); Lymphocyte # 0.99 X10^3/ul (0.83-4.51); Lymphocyte % 36.9 % (19-41); Mean Corp Hgb Conc 31.2 g/dL (32-36); Mean Corpuscular Hgb 28.8 pg (27.0-32.0); Mean Corpuscular Volume 92.3 fL (81-99); Mean Platelet Vol. 11.2 fl (6.2-12.0); Monocyte# 0.21 X10^3/uL; Monocyte% 7.8 % (0-10); NRBC Flagged by Analyzer 0 % (0-5); Neutrophil # 1.38 X10^3/uL (2.7-7.7); Neutrophil % 51.5 % (47-70); Platelet Count 137 K/mm3 (150-450); RBC Distribution Width CV 12.4 % (11.6-14.6); RBC Distribution Width SD 41.6 fl (35.1-43.9); Red Blood Count 4.69 M/mm3 (4.2-5.4); White Blood Count 2.7 K/mm3 (4.4-11.0)
[2023-11-28 14:11] LABS: Vitamin A, Retinol 34.4 ug/dL (20.1-62.0); Zinc, Plasma or Serum 69 ug/dL (44-115)
== END 2023-11-25 23:59 | disposition home or self-care (01) ==
PROVIDERS: PCP Internal Medicine; Referring Provider Internal Medicine; Visit Provider Internal Medicine
DX: E88.810 Metabolic syndrome (principal); E55.9 Vitamin D deficiency, unspecified; K91.2 Postsurgical malabsorption, not elsewhere classified; E78.00 Pure hypercholesterolemia, unspecified
CPT/HCPCS: 36415; 80053; 80061; 82306; 82728; 82746; 83090; 83540; 83735; 84100; 84443; 84590; 84630; 85025

== ENCOUNTER → 2023-12-01 | Outpatient (CLI) | payer BC, SELFPAY ==
[2023-12-02 15:48] LABS: PTHIN 91.2 pg/mL (18.4-80.1)
== END | disposition home or self-care (01) ==
LOC: MTLAB 15:28
PROVIDERS: PCP Internal Medicine; Referring Provider Internal Medicine; Visit Provider Internal Medicine
DX: E78.00 Pure hypercholesterolemia, unspecified (principal); E55.9 Vitamin D deficiency, unspecified; K91.2 Postsurgical malabsorption, not elsewhere classified
CPT/HCPCS: 83970

== ENCOUNTER → 2024-04-27 | Outpatient (CLI) | payer BC, SELFPAY ==
[2024-04-27 12:28] LABS: Absolute Lymphocyte Count 1.43 X10^3/uL (0.83-4.51); Absolute Neutrophil Count 1.6 X10^3/uL (2.0-7.7); Basophil# 0.04 X10^3/uL; Basophil% 1.1 % (0-1); Eosinophils% 2.9 % (0-5); Hematocrit 42.5 % (37-47); Hemoglobin 13.4 g/dL (12.0-15.0); Lymphocyte # 1.43 X10^3/ul (0.83-4.51); Mean Corp Hgb Conc 31.5 g/dL (32-36); Mean Corpuscular Hgb 28.8 pg (27.0-32.0); Mean Corpuscular Volume 91.4 fL (81-99); Mean Platelet Vol. 11.6 fl (6.2-12.0); Monocyte# 0.32 X10^3/uL; Monocyte% 9.2 % (0-10); NRBC Flagged by Analyzer 0 % (0-5); Neutrophil # 1.59 X10^3/uL (2.7-7.7); Neutrophil % 45.5 % (47-70); Platelet Count 121 K/mm3 (150-450); RBC Distribution Width CV 12.3 % (11.6-14.6); Red Blood Count 4.65 M/mm3 (4.2-5.4); White Blood Count 3.5 K/mm3 (4.4-11.0)
== END | disposition home or self-care (01) ==
LOC: BIMLAB 09:28
PROVIDERS: PCP Internal Medicine; Visit Provider Internal Medicine
DX: D72.819 Decreased white blood cell count, unspecified (principal)
CPT/HCPCS: 36415; 85025

== ENCOUNTER → 2024-05-11 | Outpatient (CLI) | payer BC, SELFPAY ==
[2024-05-11 17:25] LABS: Absolute Lymphocyte Count 1.52 X10^3/uL (0.83-4.51); Absolute Neutrophil Count 2.4 X10^3/uL (2.0-7.7); Basophil# 0.05 X10^3/uL; Basophil% 1.2 % (0-1); Eosinophil# 0.05 X10^3/uL; Eosinophils% 1.2 % (0-5); Hematocrit 44.5 % (37-47); Lymphocyte # 1.52 X10^3/ul (0.83-4.51); Lymphocyte % 35.6 % (19-41); Mean Corp Hgb Conc 31.5 g/dL (32-36); Mean Corpuscular Hgb 28.6 pg (27.0-32.0); Mean Corpuscular Volume 90.8 fL (81-99); Mean Platelet Vol. 11.1 fl (6.2-12.0); Monocyte# 0.23 X10^3/uL; Monocyte% 5.4 % (0-10); NRBC Flagged by Analyzer 0 % (0-5); Neutrophil # 2.41 X10^3/uL (2.7-7.7); Neutrophil % 56.4 % (47-70); Platelet Count 142 K/mm3 (150-450); RBC Distribution Width CV 12.2 % (11.6-14.6); RBC Distribution Width SD 40.6 fl (35.1-43.9); Reticulocyte Count 0.63 % (0.5-1.5); White Blood Count 4.3 K/mm3 (4.4-11.0)
[2024-05-11 18:07] LABS: Erythrocyte Sedimentation Rate 2 mm/hr (0-30)
[2024-05-11 18:13] LABS: ALB/GLOB Ratio 1.2 RATIO (0.9-2.4); AST(SGOT) 26 U/L (15-37); Alanine Aminotransfer ALT/SGPT 43 U/L (13-56); Albumin, Serum 4.2 g/dL (3.2-5.0); Alkaline Phosphatase 49 U/L (45-117); Anion Gap 6 (5-15); BUN 15 mg/dL (7-18); BUN/Creat Ratio 16.1 RATIO (10-20); CRP < 2.90 mg/L (0.0-3.0); Calcium,Total 9.5 mg/dL (8.5-10.1); Chloride 106 mmol/L (98-107); Creatinine, Serum 0.93 mg/dL (0.55-1.02); EST Glomerular Filtration Rate 66 mL/min (>60); Est Glom Filt Rate - Afr Amer 80 mL/min (>60); Ferritin 94 ng/mL (8-252); Globulin 3.5 g/dL (2.2-4.2); Glucose 91 mg/dL (74-106); Iron 104 ug/dL (50-170); Iron Binding Capacity,Total 354 ug/dL (250-450); LDH 227 U/L (84-246); Magnesium 2.3 mg/dL (1.6-2.6); PERCENT IRON SATURATION 29.4 % (15.0-55.0); Phosphorus 3.4 mg/dL (2.5-4.9); Potassium 3.5 mmol/L (3.5-5.1); Protein, Total 7.7 g/dL (6.4-8.2); Sodium Level 139 mmol/L (136-145)
[2024-05-11 18:17] LABS: Prothrombin Time (Protime)PT. 12.9 SECONDS (11.7-14.9)
[2024-05-11 18:18] LABS: Partial Thromboplast Time 28.2 Seconds (24.1-36.2)
[2024-05-12 15:15] LABS: Vitamin B12 360 pg/mL (211-911)
[2024-05-17 13:08] LABS: Copper, Serum or Plasma 84 ug/dL (80-158); Zinc, Plasma or Serum 69 ug/dL (44-115)
== END | disposition home or self-care (01) ==
LOC: LAB 16:56
PROVIDERS: PCP Internal Medicine; Referring Provider Internal Medicine Medical Oncology; Visit Provider Internal Medicine Medical Oncology
DX: D70.9 Neutropenia, unspecified (principal); D69.6 Thrombocytopenia, unspecified
CPT/HCPCS: 36415; 80053; 82525; 82607; 82668; 82728; 82746; 83540; 83550; 83615; 83735; 84100; 84630; 85025; 85045; 85610; 85652; 85730; 86140

== ENCOUNTER → 2025-04-19 | Outpatient (CLI) | payer BC, SELFPAY ==
[2025-04-19 12:49] LABS: Absolute Lymphocyte Count 1.11 X10^3/uL (0.83-4.51); Absolute Neutrophil Count 1.3 X10^3/uL (2.0-7.7); Basophil# 0.03 X10^3/uL; Basophil% 1.1 % (0-1); Eosinophil# 0.06 X10^3/uL; Eosinophils% 2.2 % (0-5); Hematocrit 39.6 % (37-47); Hemoglobin 12.8 g/dL (12.0-15.0); Lymphocyte # 1.11 X10^3/ul (0.83-4.51); Lymphocyte % 40.5 % (19-41); Mean Corp Hgb Conc 32.3 g/dL (32-36); Mean Corpuscular Hgb 29.2 pg (27.0-32.0); Mean Corpuscular Volume 90.2 fL (81-99); Mean Platelet Vol. 11.2 fl (6.2-12.0); Monocyte% 7.3 % (0-10); NRBC Flagged by Analyzer 0 % (0-5); Neutrophil # 1.34 X10^3/uL (2.7-7.7); Neutrophil % 48.9 % (47-70); Platelet Count 122 K/mm3 (150-450); RBC Distribution Width CV 12.4 % (11.6-14.6); Red Blood Count 4.39 M/mm3 (4.2-5.4); White Blood Count 2.7 K/mm3 (4.4-11.0)
[2025-04-19 13:17] LABS: PTHIN 56 pg/mL (11-61)
[2025-04-19 13:34] LABS: FOLATES,SERUM (FOLIC ACID) 7.28 ng/mL (4.60-34.80)
[2025-04-19 13:35] LABS: ALB/GLOB Ratio 1.7 RATIO (0.9-2.4); AST(SGOT) 44 U/L (<=31); Alanine Aminotransfer ALT/SGPT 50 U/L (<=34); Albumin, Serum 4.2 g/dL (3.5-5.0); Alkaline Phosphatase 50 U/L (35-104); Anion Gap 10 (5-15); BUN 18 mg/dL (4-19); BUN/Creat Ratio 21.7 RATIO (10-20); Calcium,Total 9.1 mg/dL (7.6-11.0); Carbon Dioxide 23.6 mmol/L (21.0-32.0); Chloride 103 mmol/L (98-108); Cholesterol 184 mg/dL (<=200); Creatinine, Serum 0.84 mg/dL (0.70-1.20); EST Glomerular Filtration Rate 81 (>60); Ferritin 115 ng/mL (22-378); Globulin 2.5 g/dL (2.2-4.2); Glucose 84 mg/dL (70-99); High Density Lipoprotein 96 mg/dL; Low Density Lipoprotein Calc. 77 mg/dL; Protein, Total 6.7 g/dL (5.9-8.4); Sodium Level 137 mmol/L (133-145); Triglycerides 56 mg/dL; Very Low Density Lipoprotein 11 mg/dL (5-40); Vitamin B12 371 pg/mL (180-914); Vitamin D,25 Hydroxy 28.9 ng/mL (30-100); cholesterol:hdl ratio screen 1.91
[2025-04-19 13:42] LABS: Hemoglobin A1c 5.5 % (<=5.6)
[2025-04-19 13:54] LABS: Iron 108 ug/dL (50-170); Magnesium 2.2 mg/dL (1.5-2.2); Phosphorus 3.9 mg/dL (2.7-4.5)
[2025-04-21 05:07] LABS: HOMOCYSTEINE 12.3 umol/L (0.0-14.5)
[2025-04-24 03:07] LABS: Zinc, WHOLE BLOOD 574 ug/dL (440-860)
== END | disposition home or self-care (01) ==
PROVIDERS: PCP Internal Medicine; Referring Provider Internal Medicine; Visit Provider Internal Medicine
DX: E78.00 Pure hypercholesterolemia, unspecified (principal); E88.810 Metabolic syndrome; K91.2 Postsurgical malabsorption, not elsewhere classified; E53.8 Deficiency of other specified B group vitamins; E55.9 Vitamin D deficiency, unspecified
CPT/HCPCS: 36415; 80053; 80061; 82306; 82607; 82728; 82746; 83036; 83090; 83540; 83735; 83970; 84100; 84443; 84590; 84630; 85025